=== PATIENT | male | born 1995 | race Caucasian/White ===

== ENCOUNTER 2017-06-16 00:59 | Emergency (ER) | payer BC ==
[2017-06-16] MEDS ORDERED: Lidocaine 1%* 5 ML VIAL ONE (01:23)
[2017-06-16 01:33] VITALS: BP 140/89
--- NOTE | 2017-06-16 01:44 | ED ---
Laceration/Wound HPI - HPI Summary HPI Summary: 21 male presents with complaints of a laceration to right eye/face that he sustained just [employer] after hitting it on a car door. Bleeding minimal and controlled. Has not taken any medications. Denies headache, dizziness, visual changes, vomiting or concussive symptoms. not on anticoagulants. no LOC. No other injuries or complaints. Denies PMHx. Tetanus UTD. - History of Current Complaint Stated Complaint: HEAD LAC Time Seen by Provider: 06/16/17 01:15 Hx Obtained From: Patient Mechanism of Injury: Sharp/Blunt Trauma - car door Onset/Duration: Sudden Onset, Lasting Hours - 1, Still Present Aggravating: Nothing Alleviating: Compression Timing: Constant Onset Severity: Mild Current Severity: None Pain Intensity: 0 Pain Scale Used: 0-10 Numeric Associated Signs & Symptoms: Negative - Allergy/Home Medications Allergies/Adverse Reactions: Allergies Allergy/AdvReac Type Severity Reaction Status Date / Time Amoxicillin Allergy Unknown Verified 06/16/17 01:03 Reaction Details PMH/Surg Hx/FS Hx/Imm Hx Endocrine/Hematology History: Denies: Hx Diabetes Cardiovascular History: Denies: Hx Hypertension Respiratory History: Denies: Hx Asthma - Surgical History Surgery Procedure, Year, and Place: none - Immunization History Date of Tetanus Vaccine: 2017 Immunizations Up to Date: Yes Infectious Disease History: No Infectious Disease History: Denies: Traveled Outside the [place] in Last 30 Days - Family History Known Family History: Positive: None - Social History Alcohol Use: Occasionally Substance Use Type: Reports: None Smoking Status (MU): Never Smoked Tobacco Review of Systems Constitutional: Negative Eyes: Negative Cardiovascular: Negative Respiratory: Negative Musculoskeletal: Negative Positive: Other - laceraation to right eye/face Neurological: Negative All Other Systems Reviewed And Are Negative: Yes Physical Exam Triage Information Reviewed: Yes Vital Signs On Initial Exam: Initial Vitals Temp Pulse Resp BP Pulse Ox 97.8 F 102 16 140/89 96 06/16/17 01:05 06/16/17 01:05 06/16/17 01:05 06/16/17 01:05 06/16/17 01:05 Vital Signs Reviewed: Yes Appearance: Positive: Well-Appearing, No Pain Distress, Well-Nourished Skin: Positive: Warm, Skin Color Reflects Adequate Perfusion, Dry, Other - 1.5cm laceration next to right lateral eye/eyebrow minimal to no bleeding, no FB , .5cm depth. linear. small hematoma noted underneath lac. no underlying bony tenderness, crepitus, step off. Negative: Cold, Numb, Cyanosis @, Erythema @ Head/Face: Positive: Normal Head/Face Inspection, Other - no epistaxis, racoon eyes, battles signs or facial bone tenderness. Negative: Scalp, Cephalohematoma Eyes: Positive: EOMI, MONISHA, Conjunctiva Clear ENT: Positive: Hearing grossly normal, Pharynx normal, TMs normal Neck: Positive: Supple, Nontender Respiratory/Lung Sounds: Positive: Clear to Auscultation, Breath Sounds Present. Negative: Rales, Rhonchi, Wheezes Cardiovascular: Positive: Normal, RRR, Pulses are Symmetrical in both Upper and Lower Extremities. Negative: Murmur, Rub Musculoskeletal: Positive: Normal, Strength/ROM Intact Neurological: Positive: Normal, Sensory/Motor Intact, Alert, Oriented to Person Place, Time, Reflexes Intact, NV Bundle Intact Distally, Normal Gait Psychiatric: Positive: Affect/Mood Appropriate - Sivan Coma Scale Best Eye Response: 4 - Spontaneous Best Motor Response: 6 - Obeys Commands Best Verbal Response: 5 - Oriented Procedures - Laceration/Wound Repair 1 Location: face - lateral right eye area Description: Linear Anesthesia: Local, 1.0%, Lido Length, Depth and Shape: 1.5cm length linear .5cm superficial depth Irrigated w/ Saline (ccs): 200 Laceration/Wound Explored: clean, no foreign body removed Closure: Single Layer - 3 Suture Type: Prolene - 6-0 Number of Sutures: 3 Sterile Dressing Applied?: Yes Diagnostics - Vital Signs Vital Signs Temp Pulse Resp BP Pulse Ox 06/16/17 01:05 97.8 F 102 16 140/89 96 - Laboratory Lab Statement: Any lab studies that have been ordered have been reviewed, and results considered in the medical decision making process. Laceration Repair Course/Dx - Course Course Of Treatment: sutures were placed without complication, irrigated and sterile procedure used. 3 sutures. patient tolerated procedure well. no other injuries or complaints at this time. no concern for fracture, infection or concussion. normal neuro exam. no pain. have sutures removed in 5-7 days. follow up. aware of worsening signs and symptoms. keep clean and dry. tetanus already up to date. - Differential Dx Differental Diagnoses: Avulsion, Hematoma, Laceration - Clinical Impression Provider Diagnoses: Laceration of face Discharge - Discharge Plan Condition: Stable Disposition: HOME Patient Education Materials: Care For Your Stitches (ED), Laceration (ED) [facility] - Additional Instructions: Keep wound clean and dry. Do not soak, scrub or submerge in water. Try not to get wet for 24-48 hours. Cover for 24 hours. Apply triple antibiotic ointment on laceration after 48 hours. Watch for worsening signs such as infection. Ibuprofen for pain and inflammation if desired. Have stitches removed in 5-7 days
== END 2017-06-16 01:57 | disposition home or self-care (01) ==
LOC: ED 00:59
DX: S05.31XA Ocular laceration without prolapse or loss of intraocular tissue, right eye, initial encounter (principal); X58.XXXA Exposure to other specified factors, initial encounter; Y93.9 Activity, unspecified; Y92.9 Unspecified place or not applicable
CPT/HCPCS: 12011; 99282